=== PATIENT | male | born 1990 | race Hispanic/Latino ===

== ENCOUNTER 2019-02-03 23:38 | Emergency (ER) | payer SELFPAY ==
--- NOTE | 2019-02-04 00:20 | XRay Report ---
CHEST 1 VIEW 11:56 PM INDICATION / CLINICAL INFORMATION: Chest pain for one day. COMPARISON: None available. FINDINGS: SUPPORT DEVICES: None. HEART / MEDIASTINUM: The heart size and pulmonary vasculature are normal. The aorta is normal in [place]. LUNGS / PLEURA: No significant pulmonary or pleural abnormality. No pneumothorax. ADDITIONAL FINDINGS: No significant additional findings. IMPRESSION: No acute findings. Signer Name: Bernard Caceres MD Signed: 02/04/2019 12:16 AM Workstation Name: [id number]
--- NOTE | 2019-02-04 00:39 | Emergency Department Report ---
ED Palpitations HPI - General Chief Complaint: Chest Pain Stated Complaint: CHEST PAIN, LEFT ARM SHOULDER PAIN Time Seen by Provider: 02/04/19 00:08 Source: patient Mode of arrival: Ambulatory Limitations: No Limitations - History of Present Illness Initial Comments: 28-year-old male presents to ED with palpitations, left arm pain for the last 6 hours after smoking meth. Patient denies chest pain. MD Complaint: rapid heart beat -: hour(s) (6) Context: recent drug use Associated Symptoms: denies: chest pain, shortness of breath, nausea/vomiting - Related Data Allergies Allergy/AdvReac Type Severity Reaction Status Date / Time shellfish derived Allergy Unknown Verified 02/03/19 23:41 ED Review of Systems ROS: Stated complaint: CHEST PAIN, LEFT ARM SHOULDER PAIN Other details as noted in HPI Comment: All other systems reviewed and negative Respiratory: denies: shortness of breath Cardiovascular: palpitations. denies: chest pain Musculoskeletal: other (reports left arm pain) ED Past Medical Hx - Past Medical History Previous Medical History?: No - Surgical History Past Surgical History?: No - Social History Smoking Status: Current Every Day Smoker Substance Use Type: Alcohol, Methamphetamines ED Physical Exam - General Limitations: No Limitations General appearance: alert, in no apparent distress - Head Head exam: Present: atraumatic, normocephalic - Eye Eye exam: Present: normal appearance, PERRL, EOMI - ENT ENT exam: Present: mucous membranes moist - Neck Neck exam: Present: normal inspection - Respiratory Respiratory exam: Present: normal lung sounds bilaterally. Absent: respiratory distress - Cardiovascular Cardiovascular Exam: Present: regular rate, normal rhythm - GI/Abdominal GI/Abdominal exam: Present: soft. Absent: distended, tenderness - Extremities Exam Extremities exam: Present: normal inspection, full ROM - Neurological Exam Neurological exam: Present: alert, oriented X3, CN II-XII intact. Absent: motor sensory deficit - Psychiatric Psychiatric exam: Present: normal affect, normal mood - Skin Skin exam: Present: warm, dry, intact, normal color ED Course Vital Signs 02/03/19 02/04/19 02/04/19 23:42 00:24 01:22 Temperature 97.5 F L Pulse Rate 84 88 Respiratory 14 18 18 Rate Blood Pressure 143/86 Blood Pressure 118/78 [Right] O2 Sat by Pulse 100 100 100 Oximetry ED Medical Decision Making - Lab Data Result diagrams: 02/04/19 00:15 02/04/19 00:15 - EKG Data -: EKG Interpreted by Me EKG shows normal: sinus rhythm, axis, intervals, QRS complexes, ST-T waves Rate: normal - EKG Data Interpretation: other (atrial premature complex) - Radiology Data Radiology results: report reviewed, image reviewed - Medical Decision Making - pain resolved - EKG w/ premature atrial complex, otherwise normal - labs normal - vitals normal - pt advised against smoking meth or using any other illicit drugs - will d/c home at this time - return precautions given - Differential Diagnosis arrythmia, ACS, drug abuse Critical care attestation.: If time is entered above; I have spent that time in minutes in the direct care of this critically ill patient, excluding procedure time. ED Disposition Clinical Impression: Palpitations, Methamphetamine abuse Disposition: TO HOME OR SELFCARE Is pt being admited?: No Condition: Stable Instructions: Palpitations (ED), Methamphetamine Abuse (ED) Referrals: JOSE FOWLER MD [Primary Care Provider] - 3-5 Days [facility] [Outside] - 3-5 Days Time of Disposition: 01:26
[2019-02-04 00:48] LABS: Basophils % (Auto) 0.7 % (0.0-1.8); Eosinophils # (Auto) 0.1 K/mm3 (0.0-0.4); Eosinophils % (Auto) 1.3 % (0.0-4.3); Hematocrit 49.6 % (35.5-45.6); Hemoglobin 17.3 gm/dl (11.8-15.2); Lymphocytes # (Auto) 1.6 K/mm3 (1.2-5.4); Lymphocytes % (Auto) 21.8 % (13.4-35.0); Mean Corpuscular HGB Conc 35 % (32-34); Mean Corpuscular Volume 97 fl (84-94); Monocytes # (Auto) 0.9 K/mm3 (0.0-0.8); Monocytes % (Auto) 12.9 % (0.0-7.3); Red Blood Count 5.13 M/mm3 (3.65-5.03); Red Cell Distribution Width 12.7 % (13.2-15.2)
[2019-02-04 01:09] LABS: BUN/Creatinine Ratio 15; Blood Urea Nitrogen 17 mg/dL (9-20); Hemolysis Index 305
[2019-02-04 01:25] VITALS: BP 118/78
[2019-02-04 02:43] LABS: Platelet Count 301 K/mm3 (140-440)
== END 2019-02-04 02:29 | disposition home or self-care (01) ==
LOC: ED 23:38
DX: F15.10 Other stimulant abuse, uncomplicated (principal); R00.2 Palpitations; F17.200 Nicotine dependence, unspecified, uncomplicated; Z91.013 Allergy to seafood
CPT/HCPCS: 36415; 71045; 80048; 84484; 85025; 93005; 93010